=== PATIENT | male | born 1960 | race African-American/Black ===

== ENCOUNTER 2018-08-02 01:21 | Emergency (ER) | payer SELFPAY ==
[~2018-08-02] VITALS: Ht 190.5 cm; Wt 108.9 kg
[~2018-08-02 01:21] MED LIST: AMOX500C PO; AZIT250T6 PO; IBUP800T19 PO; TRAM50TA PO
[2018-08-02] MEDS ORDERED: ONDANSETRON PF 4 MG/2 ML VIAL. IV ONE (01:30)
--- NOTE | 2018-08-02 01:34 | ED.ADGEN ---
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 brought to the ER for physical examination medical clearance he comes complaining of chest pain at the site of the Taser, no shortness of breath no syncope no presyncope no any other symptoms Review of Systems Review of Systems Constitutional: Denies fever or chills [] Eyes: Denies change in visual acuity, redness, or eye pain [] HENT: Denies nasal congestion or sore throat [] Respiratory: Denies cough or shortness of breath [] Cardiovascular: No additional information not addressed in HPI [] GI: Denies abdominal pain, nausea, vomiting, bloody stools or diarrhea [] : Denies dysuria or hematuria [] Musculoskeletal: Denies back pain Integument: Denies rash or skin lesions [] Neurologic: Denies headache, focal weakness or sensory changes [] Endocrine: Denies polyuria or polydipsia [] All other systems were reviewed and found to be within normal limits, except as documented in this note. Current Medications Current Medications Current Medications Medications (Trade) Dose Ordered Sig/Bernadine Start Time Stop Time Status Last Admin Dose Admin Aspirin (Children'S Aspirin) 324 mg 1X ONCE 08/02/18 02:00 08/02/18 02:01 DC Ondansetron HCl (Zofran) 4 mg 1X ONCE 08/02/18 01:30 08/02/18 02:00 DC 08/02/18 02:00 4 MG Sodium Chloride 1,000 ml @ 1,000 mls/hr 1X ONCE 08/02/18 02:00 08/02/18 02:59 08/02/18 02:00 1,000 MLS/HR Thiamine HCl (Thiamine Vial) 200 mg STK-MED ONCE 08/02/18 02:03 08/02/18 02:04 DC Thiamine HCl 100 mg/Sodium Chloride 51 ml @ 102 mls/hr 1X ONCE 08/02/18 02:00 08/02/18 02:29 DC 08/02/18 02:00 102 MLS/HR Allergies Allergies Allergies Coded Allergies Type Severity Reaction Last Updated Verified No Known Drug Allergies 12/10/14 No Physical Exam Physical Exam Constitutional: Well developed, well nourished, no acute distress, non-toxic appearance. [] HENT: Normocephalic, atraumatic, bilateral external ears normal, oropharynx moist, no oral exudates, nose normal. [] Eyes: PERRLA, EOMI, conjunctiva normal, no discharge. [] Neck: Normal range of motion, no tenderness, supple, no stridor. [] Cardiovascular:Heart rate regular rhythm, no murmur []chest wall tenderness on palp Lungs & Thorax: Bilateral breath sounds clear to auscultation [] Abdomen: Bowel sounds normal, soft, no tenderness, no masses, no pulsatile masses. [] Skin: Warm, dry, no erythema, no rash. [] Back: No tenderness, no CVA tenderness. [] Extremities: No tenderness, no cyanosis, no clubbing, ROM intact, no edema. [] Neurologic: Alert and oriented X 3, normal motor function, normal sensory function, no focal deficits noted. [] Current Patient Data Vital Signs Vital Signs Date Time Temp Pulse Resp B/P (MAP) Pulse Ox O2 Delivery O2 Flow Rate FiO2 08/02/18 01:21 97.7 94 18 95 Room Air Lab Results Laboratory Tests Test 08/02/18 01:45 White Blood Count 7.7 x10^3/uL (4.0-11.0) Red Blood Count 5.01 x10^6/uL (4.30-5.70) Hemoglobin 14.8 g/dL (13.0-17.5) Hematocrit 44.4 % (39.0-53.0) Mean Corpuscular Volume 89 fL (79-100) Mean Corpuscular Hemoglobin 30 pg (25-35) Mean Corpuscular Hemoglobin Concent 33 g/dL (31-37) Red Cell Distribution Width 14.2 % (11.5-14.5) Platelet Count 229 x10^3/uL (140-400) Neutrophils (%) (Auto) 70 % (31-73) Lymphocytes (%) (Auto) 22 % (24-48) L Monocytes (%) (Auto) 7 % (0-9) Eosinophils (%) (Auto) 1 % (0-3) Basophils (%) (Auto) 1 % (0-3) Neutrophils # (Auto) 5.4 x10^3uL (1.8-7.7) Lymphocytes # (Auto) 1.7 x10^3/uL (1.0-4.8) Monocytes # (Auto) 0.6 x10^3/uL (0.0-1.1) Eosinophils # (Auto) 0.1 x10^3/uL (0.0-0.7) Basophils # (Auto) 0.0 x10^3/uL (0.0-0.2) Sodium Level 141 mmol/L (136-145) Potassium Level 3.6 mmol/L (3.5-5.1) Chloride Level 105 mmol/L (98-107) Carbon Dioxide Level 19 mmol/L (21-32) L Anion Gap 17 (6-14) H Blood Urea Nitrogen 19 mg/dL (8-26) Creatinine 1.2 mg/dL (0.7-1.3) Estimated GFR (Cockcroft-Gault) 75.5 Glucose Level 139 mg/dL (70-99) H Calcium Level 9.0 mg/dL (8.5-10.1) Troponin I Quantitative < 0.017 ng/mL (0-0.055) Lipase 87 U/L (73-393) Ethyl Alcohol Level 10 mg/dL (0-10) EKG EKG [] Radiology/Procedures Radiology/Procedures [] Course & Med Decision Making Course & Med Decision Making Pertinent Labs and Imaging studies reviewed. (See chart for details) [] Final Impression Final Impression [] Problems: (1) Chest wall pain Dragon Disclaimer Dragon Disclaimer This electronic medical record was generated, in whole or in part, using a voice recognition dictation system. OSIEL DURANT MD Aug 02, 2018 01:34
[2018-08-02] MEDS ORDERED: ASPIRIN 81 MG TAB.CHEW PO ONE (02:00)
[2018-08-02] MEDS ORDERED: IV NORMAL SALINE 1,000ML 1,000 ML IV ONE (02:00)
[2018-08-02] MEDS ORDERED: IV NORMAL SALINE 1,000ML 1,000 ML IV SCH (02:00)
[2018-08-02] MEDS ORDERED: THIAMINE INJ 100 MG in IV NORMAL SALINE 50ML 50 ML IV ONE (02:00)
[2018-08-02] MEDS ORDERED: THIAMINE 200 MG/2 ML VIAL. IV ONE (02:03)
[2018-08-02 02:06] LABS: BASO % 1 % (0-3); EOS # 0.1 x10^3/uL (0.0-0.7); EOS % 1 % (0-3); HEMATOCRIT 44.4 % (39.0-53.0); HEMOGLOBIN 14.8 g/dL (13.0-17.5); LYMPH # 1.7 x10^3/uL (1.0-4.8); LYMPH % 22 % (24-48); MEAN CORPUSCULAR HEMOGLOBIN 30 pg (25-35); MEAN CORPUSCULAR HGB CONC 33 g/dL (31-37); MEAN CORPUSCULAR VOLUME 89 fL (79-100); MONO # 0.6 x10^3/uL (0.0-1.1); MONO % 7 % (0-9); NEUT # 5.4 x10^3uL (1.8-7.7); NEUT % 70 % (31-73); PLATELET COUNT 229 x10^3/uL (140-400); RED BLOOD COUNT 5.01 x10^6/uL (4.30-5.70); RED CELL DISTRIBUTION WIDTH 14.2 % (11.5-14.5); WHITE BLOOD COUNT 7.7 x10^3/uL (4.0-11.0)
[2018-08-02 02:16] LABS: CREATININE 1.2 mg/dL (0.7-1.3); GFR 75.5; POTASSIUM 3.6 mmol/L (3.5-5.1)
--- NOTE | 2018-08-02 02:29 | RAD ---
AP portable chest radiograph 08/02/2018 Clinical History: Chest pain. Asthma. An AP erect portable digital radiograph of the chest was obtained. Comparison study is dated 12/27/2014. The cardiac silhouette is borderline enlarged. The thoracic aorta is mildly tortuous. Atherosclerotic calcification thoracic aorta is seen. Emphysematous changes are seen involving both lungs. No acute pulmonary infiltrate is seen. No pleural effusion or pneumothorax is noted. Degenerative changes are seen involving the thoracic spine. Impression: No acute abnormality is seen. Electronically signed by: Conrado Foster MD (08/02/2018 2:26 AM) [id number]
[2018-08-02] MEDS ORDERED: PROMETH/CODEINE 6.25/10MG 5 ML SYRUP. PO STA (02:44)
[2018-08-02] MEDS ORDERED: KETOROLAC 30 MG/ML VIAL. IV ONE (02:45)
[2018-08-02 02:57] LABS: BARBITURATES NEG (NEG); BENZODIAZEPINES NEG (NEG); CANNABINOIDS NEG (NEG); COCAINE POS (NEG); METHADONE NEG (NEG); OPIATES NEG (NEG); PHENCYCLIDINE NEG (NEG)
[2018-08-02 02:59] LABS: AMPHETAMINE/METHAMPHETAMINE NEG (NEG)
[2018-08-02 03:10] VITALS: BP 164/105
--- NOTE | 2018-08-02 06:12 | EKG ---
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
== END 2018-08-02 03:15 | disposition home or self-care (01) ==
LOC: ER 01:21 → EEVIPCON 01:21 → ER 03:15
DX: R07.89 Other chest pain (principal); I10 Essential (primary) hypertension
CPT/HCPCS: 36415; 71045; 80048; 80307; 83690; 84484; 85025; 93005; 96365; 96375; 99284; G0480; J1885; J2405; J7030

== ENCOUNTER 2020-11-16 02:01 | Emergency (ER) | payer SELFPAY ==
[~2020-11-16] VITALS: Ht 190.5 cm; Wt 116.9 kg
[2020-11-16] MEDS ORDERED: LABETALOL 20 MG/4 ML DISP.SYRIN. IVP ONE (02:15)
[2020-11-16 02:31] LABS: BASO % 0 % (0-3); EOS % 0 % (0-3); HEMATOCRIT 46.8 % (39.0-53.0); HEMOGLOBIN 15.6 g/dL (13.0-17.5); LYMPH # 0.9 x10^3/uL (1.0-4.8); LYMPH % 6 % (24-48); MEAN CORPUSCULAR HEMOGLOBIN 30 pg (25-35); MEAN CORPUSCULAR HGB CONC 33 g/dL (31-37); MEAN CORPUSCULAR VOLUME 90 fL (79-100); MONO # 0.7 x10^3/uL (0.0-1.1); MONO % 5 % (0-9); NEUT # 13.3 x10^3uL (1.8-7.7); NEUT % 89 % (31-73); PLATELET COUNT 261 x10^3/uL (140-400); RED BLOOD COUNT 5.18 x10^6/uL (4.30-5.70); RED CELL DISTRIBUTION WIDTH 13.4 % (11.5-14.5)
--- NOTE | 2020-11-16 02:32 | PHYS DOC ---
Past History Past Medical History: Asthma, COPD, Hypertension, Hepatitis Past Surgical History: No Surgical History Alcohol Use: Heavy Drug Use: None Adult General HPI HPI Patient is a 60 year old male who presents with woke up with dizziness . He felt fine yesterday. When he woke up tonight, he noted he was dizzy described as difficulty maintaining balance. He fell a couple of times but denies hitting his head. He denies things spinning around him. Denies any chest pain or shortness of breath. Denies any focal weakness or numbness. Denies any difficulty with speech or vision. He does have history of hypertension and he is supposed to be on medication but has not been taking for a long time. He denies any previous history of stroke or cardiac disease other than hypertension. He denies fever, nausea, vomiting. Review of Systems Review of Systems Constitutional: Denies fever or chills Eyes: Denies change in visual acuity, redness, or eye pain HENT: Denies nasal congestion or sore throat Respiratory: Denies cough or shortness of breath Cardiovascular: No additional information not addressed in HPI GI: Denies abdominal pain, nausea, vomiting, bloody stools or diarrhea : Denies dysuria or hematuria Musculoskeletal: Denies back pain or joint pain Integument: Denies rash or skin lesions Neurologic: Denies headache, focal weakness or sensory changes Endocrine: Denies polyuria or polydipsia All other systems were reviewed and found to be within normal limits, except as documented in this note. Family History Family History Hypertension Current Medications Current Medications Current Medications Medications (Trade) Dose Ordered Sig/Bernadine Start Time Stop Time Status Last Admin Dose Admin Labetalol HCl (Normodyne) 20 mg 1X ONCE 11/16/20 02:15 11/16/20 02:17 DC Allergies Allergies Allergies Coded Allergies Type Severity Reaction Last Updated Verified No Known Drug Allergies 12/10/14 No Physical Exam Physical Exam Constitutional: Well developed, well nourished, no acute distress, non-toxic appearance. HENT: Normocephalic, atraumatic, bilateral external ears normal, oropharynx moist, no oral exudates, nose normal. Eyes: PERRLA, EOMI, conjunctiva normal, no discharge. Neck: Normal range of motion, no tenderness, supple, no stridor. Cardiovascular:Heart rate regular rhythm, no murmur Lungs & Thorax: Bilateral breath sounds clear to auscultation Abdomen: Bowel sounds normal, soft, no tenderness, no masses, no pulsatile masses. Skin: Warm, dry, no erythema, no rash. Back: No tenderness, no CVA tenderness. Extremities: No tenderness, no cyanosis, no clubbing, ROM intact, no edema. Neurologic: He is alert, he is bit confused thinks is 2018, does not know president and still thinks he is in route to the hospital., He is moving all 4 extremities equally. While he is slightly slow to respond his speech is normal. He has no focal motor or sensory deficit. Is unable to perform further detailed neurological testing. Current Patient Data Vital Signs Vital Signs Date Time Temp Pulse Resp B/P (MAP) Pulse Ox O2 Delivery O2 Flow Rate FiO2 11/16/20 03:17 66 13 191/127 (148) 98 Room Air 11/16/20 02:45 66 16 172/83 (112) 95 Room Air 11/16/20 02:33 70 20 183/112 (135) 98 Room Air 11/16/20 02:30 92 16 174/131 (145) 93 Room Air 11/16/20 02:23 99 207/139 11/16/20 02:01 97.5 96 16 203/129 100 Room Air Lab Results Laboratory Tests Test 11/16/20 02:10 11/16/20 02:32 White Blood Count 15.0 x10^3/uL Red Blood Count 5.18 x10^6/uL Hemoglobin 15.6 g/dL Hematocrit 46.8 % Mean Corpuscular Volume 90 fL Mean Corpuscular Hemoglobin 30 pg Mean Corpuscular Hemoglobin Concent 33 g/dL Red Cell Distribution Width 13.4 % Platelet Count 261 x10^3/uL Neutrophils (%) (Auto) 89 % Lymphocytes (%) (Auto) 6 % Monocytes (%) (Auto) 5 % Eosinophils (%) (Auto) 0 % Basophils (%) (Auto) 0 % Neutrophils # (Auto) 13.3 x10^3uL Lymphocytes # (Auto) 0.9 x10^3/uL Monocytes # (Auto) 0.7 x10^3/uL Eosinophils # (Auto) 0.0 x10^3/uL Basophils # (Auto) 0.0 x10^3/uL Sodium Level 138 mmol/L Potassium Level 3.7 mmol/L Chloride Level 98 mmol/L Carbon Dioxide Level 29 mmol/L Anion Gap 11 Blood Urea Nitrogen 10 mg/dL Creatinine 1.1 mg/dL Estimated GFR (Cockcroft-Gault) 82.6 Glucose Level 220 mg/dL Calcium Level 9.8 mg/dL Troponin I Quantitative < 0.017 ng/mL Urine Collection Type Unknown Urine Color Yellow Urine Clarity Clear Urine pH 7.0 Urine Specific [place] 1.025 Urine Protein >100 mg/dl Urine Glucose (UA) 250 mg/dL Urine Ketones (Stick) 40 mg/dL Urine Blood Mod Urine Nitrite Neg Urine Bilirubin Neg Urine Urobilinogen Dipstick 0.2 mg/dL Urine Leukocyte Esterase Neg Urine RBC 11-20 /HPF Urine WBC 0 /HPF Urine Squamous Epithelial Cells Few /LPF Urine Bacteria 0 /HPF Current Medications Medications (Trade) Dose Ordered Sig/Bernadine Route PRN Reason Start Time Stop Time Status Last Admin Dose Admin Labetalol HCl (Normodyne) 20 mg 1X ONCE IVP 11/16/20 02:15 11/16/20 02:17 DC 11/16/20 02:23 EKG EKG EKG per my interpretation shows normal sinus rhythm at [address] abnormalities but no old EKG for comparison present. [] Radiology/Procedures Radiology/Procedures T HEAD INDICATION: Reason: Near Syncope Dizziness / Spl. Instructions: / History: COMPARISON: None Available. Exposure: One or more of the following individualized dose reduction techniques were utilized for this examination: 1. Automated exposure control 2. Adjustment of the mA and/or kV according to patient size 3. Use of iterative reconstruction technique TECHNIQUE: 5 mm contiguous axial images were obtained from the skull base to the vertex in both bone and soft tissue algorithm. FINDINGS: There is a large right temporo-occipital intraparenchymal bleed identified measuring 7.0 x 8.1 x 5.3 cm with surrounding edema and mass effect causing effacement of the right lateral ventricle and 8 mm [id number] midline shift. There is sulcal effacement in the right cerebral hemisphere. The fourth ventricle isn't effaced. The basal cisterns are uneffaced. The visualized para nasal sinuses are clear. IMPRESSION: Large right temporo-occipital intraparenchymal bleed identified measuring 7.0 x 8.1 x 5.3 cm with surrounding edema and mass effect causing effacement of the right lateral ventricle and sulcal effacement in the right cerebral hemisphere and 8 mm [id number] midline shift. Other differential includes venous thrombosis hemorrhage. Chest x-ray shows large cardiac silhouette but otherwise no acute abnormality per my interpretation.[] Heart Score C/O Chest Pain: N/A Risk Factors: Risk Factors: HTN Course & Med Decision Making Course & Med Decision Making Pertinent Labs and Imaging studies reviewed. (See chart for details) Patient presented with feeling dizzy and having headache. He was quite hypertensive on arrival and labetalol 20 mg was provided intravenously. Shortly thereafter it improved his blood pressure significantly with 177/90 range. He was taken to CT scan where he had CT of the head done which shows large parietal occipital hemorrhage with midline shift and ventricle effacement as per radiology interpretation. His chest x-ray shows large cardiac silhouette but otherwise no acute abnormalities. After the initial labetalol and the blood pressure improved, the blood pressure started rising again above 190/110. At this point, nicardipine drip to titrate the blood pressure below 160 systolic started. Patient is bit anxious as he is confused but is moving all 4 extremities equally and is breathing normally. I spoke with Preeti Cartwright, advanced nurse practitioner on-call for Dr. Valdez neurosurgeon. She discussed the case with Dr. Valdez who reviewed CT scan and recommended patient be admitted to hospitalist service at [place]. I spoken with Dr. Suero who is accepted patient for admission. Patient is accompanied by mother and we have informed her as well. Patient remains in critical care condition and will be transferred by advanced ambulance. Impressions: Intracranial hemorrhage with hypertensive emergency Critical care note: Patient required close neurologic monitoring, hemodynamic monitoring for hypertensive emergency and intravenous drip. He required critical care of 30 to 45-minute. Remains on residential monitor and an IV drip nicardipine. Dragon Disclaimer Dragon Disclaimer This electronic medical record was generated, in whole or in part, using a voice recognition dictation system. Departure Departure: Impression: Primary Impression: Hypertensive emergency Additional Impression: Intracranial hemorrhage Disposition: ADMITTED INPATIENT Additional Instructions: Patient being transferred to ICU at [facility] for higher level and specialty care Problem Qualifiers KEELY DAVALOS MD Nov 16, 2020 02:32
[2020-11-16 02:37] LABS: CALCIUM 9.8 mg/dL (8.5-10.1); CREATININE 1.1 mg/dL (0.7-1.3); GFR 82.6; POTASSIUM 3.7 mmol/L (3.5-5.1)
--- NOTE | 2020-11-16 02:39 | EKG ---
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
[2020-11-16 03:00] LABS: BILIRUBIN,URINE NEG (NEG); CLARITY,URINE CLEAR; COLOR,URINE YELLOW; GLUCOSE,URINE 250 mg/dL (NEG)
[2020-11-16 03:01] LABS: NITRITE,URINE NEG (NEG); UROBILINOGEN,URINE 0.2 mg/dL (0.2 mg/dL)
[2020-11-16 03:03] LABS: BACTERIA,URINE 0 /HPF (0-FEW); SQUAMOUS EPITHELIAL CELL,UR FEW /LPF; WBC,URINE 0 /HPF (0-4)
[2020-11-16] MEDS ORDERED: niCARdipine INJ. IV ONE (03:33)
[2020-11-16] MEDS ORDERED: IV NORMAL SALINE 250ML 250 ML ONE (03:33)
--- NOTE | 2020-11-16 03:33 | RAD ---
CT HEAD INDICATION: Reason: Near Syncope Dizziness / Spl. Instructions: / History: COMPARISON: None Available. Exposure: One or more of the following individualized dose reduction techniques were utilized for thi s examination: 1. Automated exposure control 2. Adjustment of the mA and/or kV according to patient size 3. Use of iterative reconstruction technique TECHNIQUE: 5 mm contiguous axial images were obtained from the skull base to the vertex in both bone and soft tissue algorithm. FINDINGS: There is a large right temporo-occipital intraparenchymal bleed identified measuring 7.0 x 8.1 x 5.3 cm with surrounding edema and mass effect causing effacement of the right lateral ventricle and 8 mm [id number] midline shift. There is sulcal effacement in the right cerebral hemisphere. The fourth ventricle isn't effaced. The basal cisterns are uneffaced. The visualized paranasal sinuses are clear . IMPRESSION: Large right temporo-occipital intraparenchymal bleed identified measuring 7.0 x 8.1 x 5.3 cm with rodriguez rounding edema and mass effect causing effacement of the right lateral ventricle and sulcal effacemen t in the right cerebral hemisphere and 8 mm [id number] midline shift. Other differential includes venous thrombosis hemorrhage. FOR INTERNAL CODING PURPOSES Critical result: Findings discussed with at 11/16/2020 3:29 AM. RESULT CODE: (C) Electronically signed by: Jonathon Plummer MD (11/16/2020 3:31 AM) [id number]
--- NOTE | 2020-11-16 03:56 | RAD ---
EXAM: CHEST 1 VIEW History: Dizziness, shortness of breath COMPARISON: 12/27/2014 TECHNIQUE: Single portable radiograph of the chest FINDINGS: Mild cardiomegaly. Emphysematous bullous changes identified in the bilateral upper lobes r ight greater than left similar to prior exam. Mild bibasilar lung airspace opacities likely atelectas is or infiltrates. IMPRESSION: 1.Mild bibasilar lung airspace opacities likely atelectasis or infiltrates. 2. Emphysematous bullous changes bilateral upper lobes lungs. Electronically signed by: Jonathon Plummer MD (11/16/2020 3:54 AM) [id number]
[2020-11-16 04:25] VITALS: BP 174/112
== END 2020-11-16 04:30 | disposition short-term general hospital (02) ==
LOC: ER 02:01
DX: I16.1 Hypertensive emergency (principal); I62.9 Nontraumatic intracranial hemorrhage, unspecified; I10 Essential (primary) hypertension; J44.9 Chronic obstructive pulmonary disease, unspecified; F10.20 Alcohol dependence, uncomplicated; Y90.9 Presence of alcohol in blood, level not specified
CPT/HCPCS: 36415; 70450; 71045; 80048; 81001; 84484; 85025; 93005; 96365; 96374; 99285; J3490; J7050